=== PATIENT | male | born 1945 | race Caucasian/White ===

== ENCOUNTER → 2020-10-07 | Outpatient (CLI) | payer MEDICARE, OTHER | LOC: WOUNDCARE 10:10 | PROVIDERS: ATTEND Surgery | DX: S80.11XA Contusion of right lower leg, initial encounter (principal); L97.211 Non-pressure chronic ulcer of right calf limited to breakdown of skin; I87.331 Chronic venous hypertension (idiopathic) with ulcer and inflammation of right lower extremity; X58.XXXA Exposure to other specified factors, initial encounter | CPT/HCPCS: 10140 ==

== ENCOUNTER → 2020-10-10 | Outpatient (CLI) | payer MEDICARE, OTHER | LOC: WOUNDCARE 12:57 | PROVIDERS: ATTEND Surgery | DX: I96 Gangrene, not elsewhere classified (principal); L97.211 Non-pressure chronic ulcer of right calf limited to breakdown of skin; S80.11XA Contusion of right lower leg, initial encounter; I87.331 Chronic venous hypertension (idiopathic) with ulcer and inflammation of right lower extremity | CPT/HCPCS: 10140; A6260; G0463 ==

== ENCOUNTER → 2020-10-14 | Outpatient (CLI) | payer MEDICARE, OTHER | LOC: WOUNDCARE 09:01 | PROVIDERS: ATTEND Surgery | DX: S80.11XA Contusion of right lower leg, initial encounter (principal); I87.331 Chronic venous hypertension (idiopathic) with ulcer and inflammation of right lower extremity; X58.XXXA Exposure to other specified factors, initial encounter; L97.212 Non-pressure chronic ulcer of right calf with fat layer exposed | CPT/HCPCS: 11042; G0463 ==

== ENCOUNTER → 2020-10-21 | Outpatient (CLI) | payer MEDICARE, OTHER | LOC: WOUNDCARE 09:29 | PROVIDERS: ATTEND Surgery | DX: L97.212 Non-pressure chronic ulcer of right calf with fat layer exposed (principal); I87.331 Chronic venous hypertension (idiopathic) with ulcer and inflammation of right lower extremity; S80.11XA Contusion of right lower leg, initial encounter; I96 Gangrene, not elsewhere classified | CPT/HCPCS: 11042; A6253; G0463 ==

== ENCOUNTER → 2020-10-23 | Outpatient (CLI) | payer MEDICARE, OTHER | LOC: WOUNDCARE 15:03 | PROVIDERS: ATTEND Surgery | DX: I87.331 Chronic venous hypertension (idiopathic) with ulcer and inflammation of right lower extremity (principal); J44.9 Chronic obstructive pulmonary disease, unspecified | CPT/HCPCS: 29581; G0463 ==

== ENCOUNTER → 2020-10-28 | Outpatient (CLI) | payer MEDICARE, OTHER | LOC: WOUNDCARE 13:02 | PROVIDERS: ATTEND Surgery | DX: S80.11XA Contusion of right lower leg, initial encounter (principal); I96 Gangrene, not elsewhere classified; I87.331 Chronic venous hypertension (idiopathic) with ulcer and inflammation of right lower extremity; L97.212 Non-pressure chronic ulcer of right calf with fat layer exposed; X58.XXXA Exposure to other specified factors, initial encounter | CPT/HCPCS: 11042; 97607; A9272; G0463 ==

== ENCOUNTER → 2020-11-04 | Outpatient (CLI) | payer MEDICARE, OTHER | LOC: WOUNDCARE 08:59 | PROVIDERS: ATTEND Surgery | DX: I87.331 Chronic venous hypertension (idiopathic) with ulcer and inflammation of right lower extremity (principal); I96 Gangrene, not elsewhere classified; S80.11XA Contusion of right lower leg, initial encounter; L97.212 Non-pressure chronic ulcer of right calf with fat layer exposed | CPT/HCPCS: 11042; 97607; A9272; G0463 ==

== ENCOUNTER → 2020-11-07 | Outpatient (CLI) | payer MEDICARE, OTHER | LOC: WOUNDCARE 12:57 | PROVIDERS: ATTEND Surgery | DX: L97.212 Non-pressure chronic ulcer of right calf with fat layer exposed (principal) | CPT/HCPCS: 97607; A9272; G0463 ==

== ENCOUNTER → 2020-11-08 | Outpatient (CLI) | payer MEDICARE, OTHER | LOC: WOUNDCARE 11:02 | PROVIDERS: ATTEND Surgery | DX: L97.212 Non-pressure chronic ulcer of right calf with fat layer exposed (principal) | CPT/HCPCS: 29581; G0463 ==

== ENCOUNTER → 2020-11-11 | Outpatient (CLI) | payer MEDICARE, OTHER | LOC: WOUNDCARE 08:56 | PROVIDERS: ATTEND Surgery | DX: I87.331 Chronic venous hypertension (idiopathic) with ulcer and inflammation of right lower extremity (principal); I96 Gangrene, not elsewhere classified; S80.11XA Contusion of right lower leg, initial encounter; L97.212 Non-pressure chronic ulcer of right calf with fat layer exposed; X58.XXXA Exposure to other specified factors, initial encounter | CPT/HCPCS: 11042; G0463 ==

== ENCOUNTER → 2020-11-18 | Outpatient (CLI) | payer MEDICARE, OTHER | LOC: WOUNDCARE 09:57 | PROVIDERS: ATTEND Surgery | DX: I87.331 Chronic venous hypertension (idiopathic) with ulcer and inflammation of right lower extremity (principal); S80.11XA Contusion of right lower leg, initial encounter; I96 Gangrene, not elsewhere classified; L97.212 Non-pressure chronic ulcer of right calf with fat layer exposed | CPT/HCPCS: 11042; 97607; A9272; G0463 ==

== ENCOUNTER → 2020-11-21 | Outpatient (CLI) | payer MEDICARE, OTHER | LOC: WOUNDCARE 13:20 | PROVIDERS: ATTEND Surgery | DX: S81.801A Unspecified open wound, right lower leg, initial encounter (principal) | CPT/HCPCS: 29581; 97607; G0463 ==

== ENCOUNTER → 2020-11-25 | Outpatient (CLI) | payer MEDICARE, OTHER | LOC: WOUNDCARE 09:57 | PROVIDERS: ATTEND Surgery | DX: I96 Gangrene, not elsewhere classified (principal); I87.331 Chronic venous hypertension (idiopathic) with ulcer and inflammation of right lower extremity; L97.212 Non-pressure chronic ulcer of right calf with fat layer exposed; S80.11XA Contusion of right lower leg, initial encounter | CPT/HCPCS: 11042; 97607; A9272; G0463 ==

== ENCOUNTER → 2020-12-04 | Outpatient (CLI) | payer MEDICARE, OTHER | LOC: WOUNDCARE 12:53 | PROVIDERS: ATTEND Orthopaedic Surgery Hand Surgery | DX: I96 Gangrene, not elsewhere classified (principal); I87.331 Chronic venous hypertension (idiopathic) with ulcer and inflammation of right lower extremity; L97.212 Non-pressure chronic ulcer of right calf with fat layer exposed; S80.11XA Contusion of right lower leg, initial encounter | CPT/HCPCS: 29581; G0463 ==

== ENCOUNTER 2021-01-22 10:32 | Emergency (ER) | payer MEDICARE, OTHER ==
[~2021-01-22] VITALS: Ht 177 cm; Wt 117.0 kg
[2021-01-22 11:05] VITALS: BP 181/83
[2021-01-22] MEDS ORDERED: LEVA1.2543 (11:18)
[2021-01-22] MEDS ORDERED: IPRA4AER (11:18)
[2021-01-22] MEDS ORDERED: ALPR0.5T7 (11:18)
[2021-01-22] MEDS ORDERED: MOME17SP9 (11:18)
[2021-01-22] MEDS ORDERED: DABI150C5 (11:18)
[2021-01-22] MEDS ORDERED: FLUT1BLS12 (11:18)
[2021-01-22] MEDS ORDERED: MULT-1052 (11:18)
[2021-01-22] MEDS ORDERED: METO50TA7 (11:18)
[2021-01-22] MEDS ORDERED: DILT180C85 (11:18)
[2021-01-22] MEDS ORDERED: LOSA100T57 (11:18)
[2021-01-22] MEDS ORDERED: HYDR12.56 (11:18)
[2021-01-22] MEDS ORDERED: LIDOCAINE 1% INJ 20 ML 20 ML VIAL INJ ONE (11:30)
[2021-01-22] MEDS ORDERED: CEPH500C PO (11:52)
--- NOTE | 2021-01-22 11:53 | ED Lower Extremity ---
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 Nursing Sepsis Screen: No Definite Risk Source: patient Exam Limitations: no limitations History of Present Illness Date Seen by Provider: Jan 22, 2021 Time Seen by Provider: 11:49 Initial Comments To ER with a laceration to the anterolateral aspect of the right lower leg. This was from opening a car door and the corner of it hit his leg. Tetanus is up-to-date. Onset: just prior to arrival Severity: moderate Pain/Injury Location: right leg Method of Injury: direct blow Modifying Factors: Worse With Movement Allergies and Home Medications Allergies Coded Allergies: Codeine (Unverified Allergy, Mild, 02/25/09) Morphine (Unverified Allergy, Mild, 02/25/09) Patient Home Medication List Home Medication List Reviewed: Yes Review of Systems Constitutional: see HPI EENTM: see HPI Respiratory: no symptoms reported Cardiovascular: no symptoms reported Genitourinary: no symptoms reported Musculoskeletal: see HPI Skin: no symptoms reported Psychiatric/Neurological: No Symptoms Reported Past Qiwrxqj-[id number]-[id number] Hx Patient Social History Alcohol Use: Rarely Uses Smoking Status: Former Smoker Former Smoker, Quit: Jun 01, 1994 Recent Infectious Disease Expo: No Immunizations Up To Date Tetanus Booster (TDap): Less than 5yrs Seasonal Allergies Seasonal Allergies: No Past Medical History Surgeries: Yes (half of l lower lung removed, colear implant, cardiac ablation, ) Appendectomy, Ear Surgery Respiratory: Yes (LEFT LOWER LOBE REMOVED DUE TO CA) COPD, Emphysema Cardiac: Yes Atrial Fibrillation, High Cholesterol, Hypertension Neurological: No Reproductive Disorders: No Sexually Transmitted Disease: No Genitourinary: Yes Prostate Problems Gastrointestinal: Yes Polyps Musculoskeletal: No Endocrine: No Cancer: Yes Lung Psychosocial: Yes Anxiety Blood Disorders: No Physical Exam Vital Signs Vital Signs - First Documented 01/22/21 11:05 Temp 36.7 Pulse 69 Resp 18 B/P (MAP) 181/83 (115) Pulse Ox 94 Capillary Refill : Less Than 3 Seconds Height, Weight, BMI Height: '" Weight: lbs. oz. kg; 37.00 BMI Method: General Appearance: WD/WN, no apparent distress HEENT: PERRL/EOMI, normal ENT inspection Neck: non-tender, full range of motion Respiratory: no respiratory distress, no accessory muscle use Hips: bilateral hip non-tender, bilateral hip normal inspection, bilateral hip normal range of motion Legs: right leg other (There is a 2 cm V-shaped laceration with depth to the subcutaneous tissue to the anterolateral right lower leg. Minimal oozing of blood. This was anesthetized with 3 mL of 1% lidocaine without epinephrine. Irrigated and scrubbed with chlorhexidine/saline solution closed with 1 continuous suture size 5-0 Prolene. Covered with antibiotic ointment gauze and Coban.) Knees: bilateral knee non-tender, bilateral knee normal inspection, bilateral knee normal range of motion Ankles: bilateral ankle non-tender, bilateral ankle normal inspection, bilateral ankle normal range of motion Neurologic/Psychiatric: alert, normal mood/affect, oriented x 3 Skin: normal color, warm/dry Progress/Results/Core Measures Results/Orders My Orders Orders - MOLLY HURLEY APRN Lidocaine 1% Inj 20 Ml (Xylocaine 1% Inj (01/22/21 11:30) Medications Given in ED Current Medications Medications Dose Ordered Sig/Alfie Route Start Time Stop Time Status Last Admin Dose Admin Lidocaine HCl 20 ml ONCE ONCE INJ 01/22/21 11:30 01/22/21 11:31 DC 01/22/21 11:31 20 ML Vital Signs/I&O 01/22/21 11:05 Temp 36.7 Pulse 69 Resp 18 B/P (MAP) 181/83 (115) Pulse Ox 94 Blood Pressure Mean: 115 Departure Impression Primary Impression: Leg laceration Disposition: 01 HOME, SELF-CARE Condition: Stable Departure-Patient Inst. Decision time for Depature: 11:51 Referrals: NO,LOCAL PHYSICIAN (PCP/Family) Primary Care Physician Patient Instructions: Laceration Repair With Stitches (DC) Add. Discharge Instructions: 1. Antibiotics as directed. Return to ER for any worsening symptoms. You can shower letting water run over this starting tonight. Change the dressing once daily. Return to have the stitches removed either here in the emergency room or with Dr. Siddiqui in 10 days. All discharge instructions reviewed with patient and/or family. Voiced understanding. Scripts Cephalexin (Cephalexin) 500 Mg Capsule 500 MG PO TID, #14 CAP Prov: MOLLY HURLEY APRN 01/22/21 MLOLY HURLEY [employer] Jan 22, 2021 11:53
== END 2021-01-22 11:55 | disposition home or self-care (01) ==
LOC: EDUNIT# 10:32 → ER 10:34
DX: S81.811A Laceration without foreign body, right lower leg, initial encounter (principal); Z85.118 Personal history of other malignant neoplasm of bronchus and lung; Z87.891 Personal history of nicotine dependence; Z88.5 Allergy status to narcotic agent; W22.8XXA Striking against or struck by other objects, initial encounter
CPT/HCPCS: 12001

== ENCOUNTER → 2021-02-03 | Outpatient (CLI) | payer MEDICARE, OTHER ==
[~2021-02-03] MED LIST: ALPR0.5T7; CEPH500C PO; DABI150C5; DILT180C85; FLUT1BLS12; HYDR12.56; IPRA4AER; LEVA1.2543; LOSA100T57; METO50TA7; MOME17SP9; MULT-1052
== END ==
LOC: WOUNDCARE 08:57
PROVIDERS: ATTEND Surgery
DX: S81.801A Unspecified open wound, right lower leg, initial encounter (principal); I87.331 Chronic venous hypertension (idiopathic) with ulcer and inflammation of right lower extremity
CPT/HCPCS: 99213

== ENCOUNTER → 2021-02-11 | Outpatient (CLI) | payer MEDICARE, OTHER | LOC: WOUNDCARE 10:31 | PROVIDERS: ATTEND Surgery | DX: S81.801A Unspecified open wound, right lower leg, initial encounter (principal); I87.331 Chronic venous hypertension (idiopathic) with ulcer and inflammation of right lower extremity | CPT/HCPCS: 99212 ==